=== PATIENT | male | born 1940 | race Two or more races ===

== ENCOUNTER 2017-03-08 11:44 | Inpatient (IN) | payer BC, MEDICARE ==
[~2017-03-08] VITALS: Ht 177.8 cm; Wt 71.2 kg
[2017-03-08] MEDS ORDERED: ASPIRIN 81 MG TABLET CHEW ONE (12:12)
[2017-03-08] MEDS ORDERED: ASPIRIN 81 MG TABLET CHEW PO ONE (12:30)
[2017-03-08] MEDS ORDERED: SODIUM CHLORIDE FLUSH 10ML SYR IVF ONE (12:30)
[2017-03-08 12:55] LABS: ASPARTATE AMINO TRANSFERASE 15 U/L (15-37); BLOOD UREA NITROGEN 15 mg/dL (7-18)
[2017-03-08 12:56] LABS: IS PT STATUS REG ER OR PRE ER? YES
[2017-03-08] MEDS ORDERED: LEVO125T5 PO (13:12)
[2017-03-08] MEDS ORDERED: CARV3.122 PO (13:12)
[2017-03-08] MEDS ORDERED: BENA20TA2 PO (13:12)
[2017-03-08] MEDS ORDERED: ASPI-621 PO (13:12)
[2017-03-08] MEDS ORDERED: ATOR20TA9 PO (13:12)
[2017-03-08] MEDS ORDERED: HYDR-3240 PO (13:12)
[2017-03-08] MEDS ORDERED: SODIUM CHLORIDE FLUSH 10ML SYR IVF PRN (14:00)
[2017-03-08] MEDS ORDERED: HYDROcodone/APAP 5/325 TABLET PO PRN (14:30)
[2017-03-08] MEDS ORDERED: POLYETHYLENE GLYCOL 17 GM PACKET PO PRN (14:30)
[2017-03-08] MEDS ORDERED: ENALAPRILAT 1.25 MG/ML, 2ML IV PRN (14:30)
[2017-03-08] MEDS ORDERED: MORPHINE SULFATE 4 MG/ML, 1ML IVPush PRN (14:30)
[2017-03-08] MEDS ORDERED: hydrALAzine 20 MG/ML, 1ML IV PRN (14:30)
[2017-03-08] MEDS ORDERED: DOCUSATE 100 MG CAPSULE PO PRN (14:30)
[2017-03-08] MEDS ORDERED: ONDANSETRON 2MG/ML, 2ML IVP PRN (14:30)
[2017-03-08] MEDS ORDERED: LABETALOL 5MG/ML, 20ML IVPush PRN (14:30)
[2017-03-08] MEDS ORDERED: ACETAMINOPHEN 325 MG TABLET PO PRN (14:30)
[2017-03-08 15:37] VITALS: BP 144/76
[2017-03-08] MEDS: ENOXAPARIN 40 MG/0.4 ML SQ SCH (17:43)
[2017-03-08] MEDS: HYDROcodone/APAP 5/325 TABLET PO PRN (17:43)
[2017-03-08 18:53] VITALS: BP 116/70
[2017-03-08] MEDS: ATORVASTATIN 20 MG TABLET PO SCH (20:38)
[2017-03-08] MEDS: CARVEDILOL 3.125 MG TABLET PO SCH (20:38)
[2017-03-08] MEDS: FAMOTIDINE 20 MG TABLET PO SCH (20:38)
[2017-03-08] MEDS: SODIUM CHLORIDE FLUSH 10ML SYR IVF SCH (20:39)
[2017-03-09 01:11] VITALS: BP 107/69
[2017-03-09] MEDS: HYDROcodone/APAP 5/325 TABLET PO PRN ×3 (03:29→20:19)
[2017-03-09 06:17] LABS: IS PT STATUS REG ER OR PRE ER? NO
[2017-03-09 06:37] VITALS: BP 104/64
[2017-03-09] MEDS: SENNA/DOCUSATE TABLET PO SCH (09:00)
[2017-03-09] MEDS: SODIUM CHLORIDE FLUSH 10ML SYR IVF SCH ×2 (09:00→20:19)
[2017-03-09] MEDS: BENAZEPRIL 20 MG TABLET PO SCH (10:04)
[2017-03-09] MEDS: ASPIRIN 81 MG TABLET EC PO SCH (10:04)
[2017-03-09] MEDS: CARVEDILOL 3.125 MG TABLET PO SCH ×2 (10:04→20:19)
[2017-03-09] MEDS: LEVOTHYROXINE 125 MCG TABLET PO SCH (10:05)
[2017-03-09] MEDS: FAMOTIDINE 20 MG TABLET PO SCH ×2 (10:05→20:19)
[2017-03-09] MEDS ORDERED: REGADENOSON 0.4 MG/5 ML SYRINGE ONE (12:07)
[2017-03-09 15:05] VITALS: BP 141/86
[2017-03-09 20:15] VITALS: BP 111/76
[2017-03-09] MEDS: ATORVASTATIN 20 MG TABLET PO SCH (20:19)
[2017-03-09] MEDS: ENOXAPARIN 40 MG/0.4 ML SQ SCH (20:21)
[2017-03-10 02:12] VITALS: BP 124/79
[2017-03-10] MEDS: HYDROcodone/APAP 5/325 TABLET PO PRN ×3 (02:36→13:45)
[2017-03-10 07:19] VITALS: BP 138/85
[2017-03-10] MEDS: SENNA/DOCUSATE TABLET PO SCH (09:00)
[2017-03-10] MEDS: ASPIRIN 81 MG TABLET EC PO SCH (09:49)
[2017-03-10] MEDS: CARVEDILOL 3.125 MG TABLET PO SCH (09:50)
[2017-03-10] MEDS: BENAZEPRIL 20 MG TABLET PO SCH (09:50)
[2017-03-10] MEDS: LEVOTHYROXINE 125 MCG TABLET PO SCH (09:50)
[2017-03-10] MEDS: SODIUM CHLORIDE FLUSH 10ML SYR IVF SCH (09:50)
[2017-03-10] MEDS: FAMOTIDINE 20 MG TABLET PO SCH (09:50)
[2017-03-10 13:53] VITALS: BP 107/71
[2017-03-10] MEDS ORDERED: ASPI-621 PO (16:08)
[2017-03-10] MEDS ORDERED: ATOR20TA9 PO (16:08)
[2017-03-10] MEDS ORDERED: BENA20TA2 PO (16:08)
[2017-03-10] MEDS ORDERED: LEVO125T5 PO (16:08)
[2017-03-10] MEDS ORDERED: CARV3.122 PO (16:08)
== END 2017-03-10 18:10 | disposition home or self-care (01) | DRG 293 ==
LOC: ED 12:14 → EDIP 13:56 → SUATTDRO 14:08 → 5SO 15:20
PROVIDERS: ADMIT Internal Medicine; ATTEND Internal Medicine
DX: I11.0 Hypertensive heart disease with heart failure (principal); I50.22 Chronic systolic (congestive) heart failure; I25.2 Old myocardial infarction; E78.5 Hyperlipidemia, unspecified; I25.10 Atherosclerotic heart disease of native coronary artery without angina pectoris; F32.9 Major depressive disorder, single episode, unspecified; Z95.1 Presence of aortocoronary bypass graft; Z87.891 Personal history of nicotine dependence; Z82.49 Family history of ischemic heart disease and other diseases of the circulatory system; Z91.19 Patient's noncompliance with other medical treatment and regimen; Z82.3 Family history of stroke
CPT/HCPCS: 36415; 71010; 78452; 80053; 80061; 84484; 85025; 85610; 85730; 93005; 93017; 93306; J1650; J2785; A9502; C9898

== ENCOUNTER 2019-10-11 12:38 | Emergency (ER) | payer MEDICARE ==
[~2019-10-11] VITALS: Ht 167.6 cm; Wt 67.9 kg
[~2019-10-11 12:38] MED LIST: ASPI81TA45 PO; ATOR20TA37 PO; BENA20TA54 PO; CARV3.122 PO; HYDR-3240 PO; LEVO125T5 PO
--- NOTE | 2019-10-11 13:54 | NUR ---
PT HAS CO OF RIB PAIN RELATED TO HIS CABG IN 2013. PTS STATES HE IS OUT OF PAIN MEDS AND NEEDS A REFILL. PT STATES HIS PRIMARY DR THINKS THEY CUT NERVES THAT ARE CAUSING ALL THE PAIN. PT IS NOT IN ANY DISTRESS. DENIES SOB OR OR CHEST PIAN
[2019-10-11] MEDS ORDERED: HYDROcodone/APAP 5/325 TABLET PO STA ×2 (14:33→15:19)
[2019-10-11] MEDS ORDERED: ASPIRIN 81 MG TABLET CHEW ONE (14:43)
[2019-10-11] MEDS ORDERED: HYDROcodone/APAP 5/325 TABLET ONE ×2 (14:43→15:20)
--- NOTE | 2019-10-11 14:56 | NUR ---
BREAK RN: PT MEDICATED PER EMAR. RESTING ON GURNEY. NADN. CONNECTED TO MONITOR. VSS. REQUESTING STRONGER PAIN MEDICATION STATING HE TAKES NORCO 10/325 AT HOME. BOTTLE IS AT BEDSIDE FOR VERIFICATION. WILL ALERT .
[2019-10-11 14:57] VITALS: BP 111/65
[2019-10-11 14:58] LABS: BASOPHILS # (AUTO) 0.03 x10^3/uL (0-0.1); BASOPHILS % (AUTO) 0 % (0-1); EOSINOPHILS # (AUTO) 0.11 x10^3/uL (0-0.4); EOSINOPHILS % (AUTO) 1 % (1-7); LYMPHOCYTES # (AUTO) 1.69 x10^3/uL (1-3.4); LYMPHOCYTES % (AUTO) 20 % (22-44); MD NO; MEAN CORPUSCULAR HEMOGLOBIN 30.1 pg (27.5-34.5); MEAN CORPUSCULAR HGB CONC 32.1 g/dL (33.2-36.2); MEAN CORPUSCULAR VOLUME 93.8 fL (81-97); MEAN PLATELET VOLUME 8.6 fL (7.4-10.4); MONOCYTES # (AUTO) 0.42 x10^3/uL (0.2-0.8); MONOCYTES % (AUTO) 5 % (2-9); NEUTROPHILS # (AUTO) 6.33 x10^3/uL (1.8-6.8); NEUTROPHILS % (AUTO) 74 % (42-75); PLATELET COUNT 297 x10^3/uL (130-400); RED BLOOD COUNT 5.08 x10^6/uL (4.38-5.82); RED CELL DISTRIBUTION WIDTH 13.6 % (9.4-14.8)
[2019-10-11] MEDS ORDERED: ASPIRIN 81 MG TABLET CHEW PO ONE (15:00)
[2019-10-11 15:09] LABS: ALBUMIN 3.6 g/dL (3.4-5.0); ANION GAP 3 mmol/L (5-15); CALCIUM 9.1 mg/dL (8.5-10.1); CHLORIDE 112 mmol/L (98-107)
[2019-10-11 15:15] LABS: CREATININE 1.13 mg/dL (0.7-1.3); TROPONIN I < 0.015 ng/mL (0.000-0.045)
--- NOTE | 2019-10-11 15:58 | NUR ---
Patient/Caregiver given discharge instructions and they have confirmed that they understand the instructions. Patient ambulatory with steady gait.
== END 2019-10-11 16:04 | disposition home or self-care (01) ==
LOC: ED 15:58
DX: R07.2 Precordial pain (principal); R07.1 Chest pain on breathing; I11.0 Hypertensive heart disease with heart failure; I50.9 Heart failure, unspecified; I25.2 Old myocardial infarction; E78.5 Hyperlipidemia, unspecified; I20.0 Unstable angina; Z87.891 Personal history of nicotine dependence
CPT/HCPCS: 36415; 71045; 80048; 82040; 84484; 85025; 93005; 99284

== ENCOUNTER 2019-11-16 10:54 | Emergency (ER) | payer MEDICARE ==
[~2019-11-16] VITALS: Ht 162.6 cm; Wt 71.0 kg
--- NOTE | 2019-11-16 11:35 | NUR ---
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
[2019-11-16] MEDS ORDERED: HYDROcodone/APAP 5/325 TABLET PO ONE ×2 (12:00→13:30)
--- NOTE | 2019-11-16 12:02 | NUR ---
PT AMBULATORY TO ROOM 34 W/ C/O CP STARTED SINCE 2013 WHEN HE HAD HIS LAST TN. STATES HE HAS HX 3 TN'S W/ STENTS PLACED AND 3 CABG'S. PT STATES HE ALWAYS HAS THIS PAIN BUT WORSE SINCE YESTERDAY WHEN HE RAN OUT OF HIS NORCO MEDICATION. STATES HE CANNOT MAKE APPT W/ PCP THEY ARE OUT OF TOWN THIS WEEK. PT RESTING ON GURNEY. NADN. WARM BLANKET PROVIDED. MONITORS APPLIED. PIV INITIATED.
--- NOTE | 2019-11-16 12:06 | NUR ---
REPORT GIVEN TO OSWALDO ELLISON.
--- NOTE | 2019-11-16 12:09 | NUR ---
RECEIVED REPORT FROM NURIA CHACON. ASSUMING CARE AT THIS TIME.
[2019-11-16] MEDS ORDERED: HYDROcodone/APAP 5/325 TABLET ONE ×2 (12:13→13:23)
--- NOTE | 2019-11-16 12:15 | NUR ---
MEDS ADMIN PER JAN. PT RESTING ON RAVIN.
[2019-11-16 12:22] LABS: MEAN CORPUSCULAR HEMOGLOBIN 29.8 pg (27.5-34.5); MEAN CORPUSCULAR HGB CONC 32.7 g/dL (33.2-36.2); MEAN CORPUSCULAR VOLUME 91.2 fL (81-97); PLATELET COUNT 227 x10^3/uL (130-400); RED BLOOD COUNT 5.65 x10^6/uL (4.38-5.82); RED CELL DISTRIBUTION WIDTH 15.4 % (9.4-14.8)
[2019-11-16 12:34] LABS: ALBUMIN 3.8 g/dL (3.4-5.0); ANION GAP 5 mmol/L (5-15); CALCIUM 8.4 mg/dL (8.5-10.1); CHLORIDE 110 mmol/L (98-107)
[2019-11-16 12:40] LABS: ALANINE AMINOTRANSFERASE 17 U/L (12-78); ALKALINE PHOSPHATASE 72 U/L (45-117); BILIRUBIN,TOTAL 1.2 mg/dL (0.2-1.0); CREATININE 1.35 mg/dL (0.7-1.3); TOTAL PROTEIN 8.1 g/dL (6.4-8.2); TROPONIN I < 0.015 ng/mL (0.000-0.045)
[2019-11-16 12:55] LABS: MD YES
[2019-11-16 12:59] LABS: <RBC MORPHOLOGY> NORMAL; BAND#(MANUAL) 0.07 x10^3/uL; BANDS%(MANUAL) 1 % (0-7); EOS#(MANUAL) 0.07 x10^3/uL (0.0-0.4); EOS% (MANUAL) 1 % (1-7); LYMPHS% (MANUAL) 27 % (22-44); MONOS#(MANUAL) 0.22 x10^3/uL (0.3-2.7); MONOS% (MANUAL) 3 % (2-9); SEG#(MANUAL) 5.03 x10^3/uL (1.8-6.8); SEGS% (MANUAL) 68 % (42-75)
[2019-11-16 13:00] LABS: <PLATELET ESTIMATE> ADEQUATE; <PLT MORPHOLOGY> NORMAL PLT MORPH
--- NOTE | 2019-11-16 13:10 | NUR ---
ALL RESULTS ARE BACK AT THIS TIME. CHART UP FOR RECHECK.
--- NOTE | 2019-11-16 13:20 | NUR ---
MD AT BEDSIDE TO UPDATE PT ON POC.
[2019-11-16 13:26] VITALS: BP 152/70
--- NOTE | 2019-11-16 13:26 | NUR ---
MEDS ADMIN PER JAN.
== END 2019-11-16 13:37 | disposition home or self-care (01) ==
LOC: ED 12:22
DX: R07.89 Other chest pain (principal); I11.0 Hypertensive heart disease with heart failure; I50.9 Heart failure, unspecified; I25.2 Old myocardial infarction; E78.5 Hyperlipidemia, unspecified; Z87.891 Personal history of nicotine dependence; Z98.61 Coronary angioplasty status
CPT/HCPCS: 36415; 71045; 80053; 84484; 85025; 93005; 99284

== ENCOUNTER 2019-11-19 11:53 | Emergency (ER) | payer MEDICARE ==
[~2019-11-19] VITALS: Ht 162.6 cm; Wt 71.5 kg
[2019-11-19 11:53] VITALS: BP 155/82
[2019-11-19 12:42] LABS: TROPONIN I < 0.015 ng/mL (0.000-0.045)
--- NOTE | 2019-11-19 13:45 | NUR ---
Pt back to room
[2019-11-19] MEDS ORDERED: OXYcodone/APAP 10/325MG TABLET PO ONE (14:00)
[2019-11-19] MEDS ORDERED: HYDROcodone/APAP 10/325 MG TABLET ONE (14:06)
[2019-11-19] MEDS ORDERED: OXYcodone/APAP 10/325MG TABLET ONE (14:10)
--- NOTE | 2019-11-19 14:11 | NUR ---
Pt medicated per emar.
--- NOTE | 2019-11-19 14:28 | NUR ---
Pt here for chronic chest pain and wants a refill on his medications.
--- NOTE | 2019-11-19 14:30 | NUR ---
Patient/Caregiver given discharge instructions and they have confirmed that they understand the instructions. Patient ambulatory with steady gait.
== END 2019-11-19 14:30 | disposition home or self-care (01) ==
LOC: ED 11:53
DX: R07.89 Other chest pain (principal); I11.0 Hypertensive heart disease with heart failure; I25.2 Old myocardial infarction; F11.20 Opioid dependence, uncomplicated
CPT/HCPCS: 36415; 71046; 84484; 93005; 99284

== ENCOUNTER 2019-12-09 15:31 | Emergency (ER) | payer MEDICARE ==
[~2019-12-09] VITALS: Ht 162.6 cm; Wt 70.5 kg
--- NOTE | 2019-12-09 15:40 | NUR ---
ekg performed in triage
[2019-12-09 16:39] VITALS: BP 165/92
[2019-12-09] MEDS ORDERED: HYDROcodone/APAP 5/325 TABLET PO STA (16:55)
[2019-12-09] MEDS ORDERED: LIDODERM 5% PATCH TD ONE ×2 (17:00→17:13)
--- NOTE | 2019-12-09 17:07 | NUR ---
PT HERE WITH C/O CHEST PAIN X 4 YEARS. PT STATES EPIGASTRIC/SUBSTERNAL IN LOCATION. PT STATES "NORCO MAKES IT GO BETTER." PT DRESSED IN GOWN AND ON MONITOR. NAD, ROOM AIR, CALL LIGHT WITHIN REACH, SIDERAIL X [address] PT STATES PREVIOUS WORKUP WAS NEGATIVE.
[2019-12-09] MEDS ORDERED: HYDROcodone/APAP 5/325 TABLET ONE (17:12)
--- NOTE | 2019-12-09 17:18 | NUR ---
PT MEDICATED PER ORDER.
[2019-12-09 17:26] LABS: BASOPHILS # (AUTO) 0.03 x10^3/uL (0-0.1); BASOPHILS % (AUTO) 0 % (0-1); EOSINOPHILS # (AUTO) 0.09 x10^3/uL (0-0.4); EOSINOPHILS % (AUTO) 1 % (1-7); LYMPHOCYTES # (AUTO) 2.01 x10^3/uL (1-3.4); LYMPHOCYTES % (AUTO) 24 % (22-44); MD NO; MEAN CORPUSCULAR HEMOGLOBIN 29.7 pg (27.5-34.5); MEAN CORPUSCULAR HGB CONC 32.9 g/dL (33.2-36.2); MEAN CORPUSCULAR VOLUME 90.5 fL (81-97); MEAN PLATELET VOLUME 9.2 fL (7.4-10.4); MONOCYTES # (AUTO) 0.39 x10^3/uL (0.2-0.8); MONOCYTES % (AUTO) 5 % (2-9); NEUTROPHILS # (AUTO) 5.89 x10^3/uL (1.8-6.8); NEUTROPHILS % (AUTO) 70 % (42-75); PLATELET COUNT 168 x10^3/uL (130-400); RED BLOOD COUNT 5.25 x10^6/uL (4.38-5.82)
[2019-12-09 17:34] LABS: ANION GAP 7 mmol/L (5-15); CALCIUM 8.6 mg/dL (8.5-10.1); CHLORIDE 110 mmol/L (98-107); CREATININE 1.18 mg/dL (0.7-1.3)
[2019-12-09 17:38] LABS: TROPONIN I 0.036 ng/mL (0.000-0.045)
--- NOTE | 2019-12-09 19:06 | NUR ---
Patient/Caregiver given discharge instructions and they have confirmed that they understand the instructions. Patient ambulatory with steady gait.
== END 2019-12-09 19:08 | disposition home or self-care (01) ==
LOC: ED 19:00
DX: R07.2 Precordial pain (principal); I11.0 Hypertensive heart disease with heart failure; I50.9 Heart failure, unspecified; I25.2 Old myocardial infarction; E78.5 Hyperlipidemia, unspecified
CPT/HCPCS: 36415; 71045; 80048; 82040; 84484; 85025; 93005; 99284

== ENCOUNTER 2020-01-07 10:57 | Emergency (ER) | payer MEDICARE ==
[~2020-01-07] VITALS: Ht 162.6 cm; Wt 70.0 kg
[2020-01-07 11:04] VITALS: BP 168/98
[2020-01-07] MEDS ORDERED: LIDODERM 5% PATCH TD ONE ×2 (11:56→12:00)
[2020-01-07] MEDS ORDERED: HYDROcodone/APAP 5/325 TABLET ONE (11:57)
[2020-01-07] MEDS ORDERED: HYDROcodone/APAP 5/325 TABLET PO ONE (12:00)
== END 2020-01-07 12:17 | disposition home or self-care (01) ==
LOC: ED 12:11
DX: G89.29 Other chronic pain (principal); R07.89 Other chest pain; I11.0 Hypertensive heart disease with heart failure; I50.9 Heart failure, unspecified; I25.2 Old myocardial infarction; E78.5 Hyperlipidemia, unspecified
CPT/HCPCS: 99283

== ENCOUNTER 2020-02-05 14:06 | Emergency (ER) | payer MEDICARE ==
[~2020-02-05] VITALS: Ht 162.6 cm; Wt 71.4 kg
--- NOTE | 2020-02-05 14:48 | NUR ---
SENIOR STRATEGY ANALYST: PT WALKED BACK FROM LOBBY TO ROOM AT THIS TIME.
[2020-02-05 16:02] LABS: BASOPHILS # (AUTO) 0.05 x10^3/uL (0-0.1); BASOPHILS % (AUTO) 1 % (0-1); EOSINOPHILS # (AUTO) 0.04 x10^3/uL (0-0.4); EOSINOPHILS % (AUTO) 1 % (1-7); LYMPHOCYTES # (AUTO) 1.55 x10^3/uL (1-3.4); LYMPHOCYTES % (AUTO) 22 % (22-44); MD NO; MEAN CORPUSCULAR HEMOGLOBIN 31.3 pg (27.5-34.5); MEAN CORPUSCULAR HGB CONC 33.4 g/dL (33.2-36.2); MEAN CORPUSCULAR VOLUME 93.8 fL (81-97); MEAN PLATELET VOLUME 8.9 fL (7.4-10.4); MONOCYTES # (AUTO) 0.29 x10^3/uL (0.2-0.8); MONOCYTES % (AUTO) 4 % (2-9); NEUTROPHILS # (AUTO) 5.07 x10^3/uL (1.8-6.8); NEUTROPHILS % (AUTO) 73 % (42-75); PLATELET COUNT 202 x10^3/uL (130-400); RED BLOOD COUNT 5.07 x10^6/uL (4.38-5.82)
[2020-02-05 16:13] LABS: ALBUMIN 3.9 g/dL (3.4-5.0); ANION GAP 7 mmol/L (5-15); CALCIUM 8.7 mg/dL (8.5-10.1); CHLORIDE 108 mmol/L (98-107); CREATININE 1.19 mg/dL (0.7-1.3)
[2020-02-05 16:16] LABS: TROPONIN I < 0.015 ng/mL (0.000-0.045)
[2020-02-05] MEDS ORDERED: HYDROcodone/APAP 10/325 MG TABLET ONE (16:36)
--- NOTE | 2020-02-05 16:39 | NUR ---
pt requesting md dmitriy notified. pt medicated per jan. pt resting in [facility] on monitor. awaiting recheck by
[2020-02-05] MEDS ORDERED: HYDROcodone/APAP 10/325 MG TABLET PO ONE (17:00)
[2020-02-05 17:53] VITALS: BP 133/78
--- NOTE | 2020-02-05 17:54 | NUR ---
PT DISCHARGED, ADMITTING AT BEDSIDE FOR PAPERWORK. PT INFORMED HE CAN GO WHEN THEY ARE DONE.
== END 2020-02-05 17:55 ==
LOC: ED 17:53
DX: R07.89 Other chest pain (principal); I25.2 Old myocardial infarction; I11.0 Hypertensive heart disease with heart failure; I50.9 Heart failure, unspecified; E78.5 Hyperlipidemia, unspecified; Z98.61 Coronary angioplasty status
CPT/HCPCS: 36415; 71045; 80048; 82040; 84484; 85025; 93005; 99284; 99285

== ENCOUNTER 2020-11-18 13:08 | Emergency (ER) | payer MEDICARE ==
[~2020-11-18] VITALS: Ht 147.3 cm; Wt 69.7 kg
[2020-11-18] MEDS ORDERED: ASPIRIN 81 MG TABLET CHEW PO ONE (13:30)
[2020-11-18 14:12] LABS: BASOPHILS % (AUTO) 1 % (0-1); EOSINOPHILS % (AUTO) 0 % (1-7); LYMPHOCYTES % (AUTO) 19 % (22-44); MEAN CORPUSCULAR HEMOGLOBIN 30.2 pg (27.5-34.5); MEAN CORPUSCULAR HGB CONC 33.6 g/dL (33.2-36.2); MEAN PLATELET VOLUME 8.9 fL (7.4-10.4); MONOCYTES % (AUTO) 7 % (2-9); NEUTROPHILS % (AUTO) 74 % (42-75); PLATELET COUNT 193 x10^3/uL (130-400); RED BLOOD COUNT 5.56 x10^6/uL (4.38-5.82); RED CELL DISTRIBUTION WIDTH 14.9 % (9.4-14.8)
[2020-11-18 14:14] LABS: MD NO
[2020-11-18 14:22] LABS: ANION GAP 6 mmol/L (5-15); CALCIUM 8.9 mg/dL (8.5-10.1); CHLORIDE 108 mmol/L (98-107)
[2020-11-18 14:28] LABS: ALANINE AMINOTRANSFERASE 41 U/L (12-78); ALKALINE PHOSPHATASE 75 U/L (45-117); BILIRUBIN,TOTAL 0.8 mg/dL (0.2-1.0); CREATININE 1.22 mg/dL (0.7-1.3); TOTAL PROTEIN 8.3 g/dL (6.4-8.2); TROPONIN I 0.018 ng/mL (0.000-0.045)
--- NOTE | 2020-11-18 17:41 | NUR ---
director physical therapy: pt from lobby to T2
[2020-11-18] MEDS ORDERED: HYDROcodone/APAP 5/325 TABLET PO ONE (18:00)
[2020-11-18] MEDS ORDERED: ASPIRIN 81 MG TABLET CHEW ONE (18:54)
[2020-11-18] MEDS ORDERED: HYDROcodone/APAP 5/325 TABLET ONE (18:55)
[2020-11-18 19:02] VITALS: BP 160/94
== END 2020-11-18 19:18 | disposition home or self-care (01) ==
LOC: ED 18:52
DX: R07.89 Other chest pain (principal); R94.31 Abnormal electrocardiogram [ECG] [EKG]; I11.0 Hypertensive heart disease with heart failure; I50.9 Heart failure, unspecified; I25.2 Old myocardial infarction; Z95.1 Presence of aortocoronary bypass graft
CPT/HCPCS: 36415; 71045; 80053; 83880; 84484; 85025; 93005; 99285

== ENCOUNTER 2021-05-13 12:37 | Emergency (ER) | payer MEDICARE ==
[~2021-05-13] VITALS: Ht 165.1 cm; Wt 72.3 kg
[~2021-05-13 12:37] MED LIST changes: +ACET325T26 PO; +AMLO-150 PO; +AMOX1TAB64 PO; +BACI3.5O7 EACHEYE; +BACL20TA PO; +CARV3.1212 PO; +HYDR-2214 PO; -HYDR-3240 PO; +ISOS30TA8 PO; +LISI5TAB7 PO; +PREG50CA PO; +ROSU40TA PO; +SPIR25TA PO; +TRAZ50TA66 PO
--- NOTE | 2021-05-13 12:47 | NUR ---
EKG IN TRIAGE
[2021-05-13 13:18] LABS: BASOPHILS % (AUTO) 1 % (0-1); EOSINOPHILS % (AUTO) 1 % (1-7); LYMPHOCYTES % (AUTO) 18 % (22-44); MEAN CORPUSCULAR HEMOGLOBIN 28.7 pg (27.5-34.5); MEAN CORPUSCULAR HGB CONC 33.2 g/dL (33.2-36.2); MEAN PLATELET VOLUME 9.4 fL (7.4-10.4); MONOCYTES % (AUTO) 4 % (2-9); NEUTROPHILS % (AUTO) 77 % (42-75); PLATELET COUNT 199 x10^3/uL (130-400); RED BLOOD COUNT 5.71 x10^6/uL (4.38-5.82); RED CELL DISTRIBUTION WIDTH 17.2 % (9.4-14.8)
--- NOTE | 2021-05-13 13:19 | NUR ---
PT BACK FROM XR. PT STATES CP AND ABD PAIN STARTED WEEKS AGO. PT STATES IT STARTED AFGTER PT RAN OUT OF NORCO 10-325 MG TABLETS FOR HX CP AND SURGERY TO AREA (UNKNOWN WHICH AREA PT CANNOT RECALL). PT STATES HE CAME TO ED TODAY "I'M TIRED OF HURTING". PT RESTING ON GURNEY. NADN. MONITORS IN PLACE. VSS. WARM BLANKET PROVIDED. CALL LIGHT IN REACH.
[2021-05-13 13:29] LABS: ALBUMIN 3.7 g/dL (3.4-5.0); ANION GAP 9 mmol/L (5-15); CALCIUM 8.5 mg/dL (8.5-10.1); CHLORIDE 110 mmol/L (98-107)
[2021-05-13 13:36] LABS: ALANINE AMINOTRANSFERASE 11 U/L (12-78); ALKALINE PHOSPHATASE 71 U/L (45-117); BILIRUBIN,TOTAL 0.7 mg/dL (0.2-1.0); CREATININE 1.11 mg/dL (0.7-1.3); TOTAL PROTEIN 8.1 g/dL (6.4-8.2); TROPONIN I < 0.015 ng/mL (0.000-0.045)
--- NOTE | 2021-05-13 13:41 | NUR ---
PT RESTING ON GURNEY. NADN. STEWARD.
[2021-05-13 14:14] LABS: <PLATELET ESTIMATE> ADEQUATE; <RBC MORPHOLOGY> NORMAL; LARGE PLATELETS 1+
--- NOTE | 2021-05-13 14:34 | NUR ---
PT RESTING ON GURNEY. NADN. STEWARD.
--- NOTE | 2021-05-13 15:04 | NUR ---
PT CHART REVIEWED AND PLACED FOR RECHECK.
--- NOTE | 2021-05-13 15:34 | NUR ---
PT RESTING ON GURNEY. NADN. STEWARD.
[2021-05-13 16:17] VITALS: BP 150/72
--- NOTE | 2021-05-13 16:17 | NUR ---
PT RESTING ON GURNEY. NADN. STEWARD.
--- NOTE | 2021-05-13 16:23 | NUR ---
ERP DR. LEDEZMA AT BEDSIDE FOR RE-EVAL.
== END 2021-05-13 16:34 | disposition home or self-care (01) ==
LOC: ED 13:56
DX: R10.84 Generalized abdominal pain (principal); R07.89 Other chest pain; F11.20 Opioid dependence, uncomplicated; I11.0 Hypertensive heart disease with heart failure; I50.9 Heart failure, unspecified; E11.9 Type 2 diabetes mellitus without complications; E78.5 Hyperlipidemia, unspecified; I25.10 Atherosclerotic heart disease of native coronary artery without angina pectoris; I25.2 Old myocardial infarction; I42.9 Cardiomyopathy, unspecified
CPT/HCPCS: 36415; 74022; 80053; 83690; 84484; 85025; 93005; 99285